=== PATIENT | female | born 2000 | race Caucasian/White ===

== ENCOUNTER 2021-10-10 11:42 | Emergency (ER) | payer OTHER ==
[~2021-10-10] VITALS: Ht 180.3 cm; Wt 75.0 kg
[2021-10-10 11:55] VITALS: BP 121/83
== END 2021-10-10 13:11 | disposition home or self-care (01) ==
LOC: ER 13:06
DX: S60.444A External constriction of right ring finger, initial encounter (principal); W49.09XA Other specified item causing external constriction, initial encounter; Y93.89 Activity, other specified; Y92.89 Other specified places as the place of occurrence of the external cause
CPT/HCPCS: 99281

== ENCOUNTER 2024-06-26 19:07 | Emergency (ER) | payer OTHER ==
[~2024-06-26] VITALS: Ht 180.3 cm; Wt 78.0 kg
[2024-06-26 19:35] VITALS: O2SAT 99
[2024-06-26 19:36] VITALS: BP 122/79; PULSE 79; RESP 18; TEMP 36.5; O2SAT 99
[2024-06-26] MEDS: TETRACAINE 0.5% OPHTH DROPS 4ML BOTHEYE ONE (23:47)
[2024-06-26] MEDS: FLUORESCEIN SODIUM 1MG/STRIP BOTHEYE ONE (23:47)
== END 2024-06-26 22:03 | disposition home or self-care (01) ==
LOC: ER 19:07
DX: H53.2 Diplopia (principal)
CPT/HCPCS: 99284